=== PATIENT | male | born 1960 | race Caucasian/White ===

== ENCOUNTER 2016-12-14 09:03 | Day surgery (SDC) | payer BC ==
[2016-12-14] VITALS (8 sets, daily range): BP systolic 116–136; BP diastolic 70–89
[~2016-12-14] VITALS: Ht 177.8 cm; Wt 81.6 kg
[~2016-12-14 09:03] MED LIST: ASPIRIN81 MG ORAL
[2016-12-14] MEDS ORDERED: FLOMAX0.4 MG ORAL (09:38)
[2016-12-14] MEDS ORDERED: VITAMIN D1000 UNI1 ORAL (09:38)
--- NOTE | 2016-12-14 10:30 | Pre-Procedure Note/Attestation ---
Pre-Procedure Note/Attestation Complete Prior to Procedure Planned Procedure: not applicable Procedure Narrative: egd/colon Indications for Procedure Pre-Operative Diagnosis: screening colon, GERD Attestation I attest that I discussed the nature of the procedure; its benefits; risks and complications; and alternatives (and the risks and benefits of such alternatives ), prior to the procedure, with the patient (or the patient's legal development representative). I attest that, if there was a reasonable possibility of needing a blood transfusion, the patient (or the patient's legal development representative) was given the [facility] standardized written summary, pursuant to the [place] Blood Safety Act ([place] Health and Safety Code # 1645, as amended). I attest that I re-evaluated the patient just prior to the surgery and that there has been no change in the patient's H&P, except as documented below: EDIL MORRISON Dec 14, 2016 10:30
--- NOTE | 2016-12-14 10:32 | Short Stay Surgery H&P ---
History of Present Illness History of Present Illness Chief Complaint screening colon ,GERD HPI El Patel is a 56 year old male who was admitted on for Gerd,Hx Of Colon Polyps Patient History Allergies: Coded Allergies: No Known Allergies (Unverified , 11/21/12) PAST MEDICAL HISTORY: (1) GERD (gastroesophageal reflux disease) Past Surgeries: Social History: Medication History Scheduled Aspirin* (Aspirin*), 81 MG ORAL DAILY, (Reported) Cholecalciferol (Vitamin D3)* (Vitamin D*), 1,000 UNIT ORAL DAILY, (Reported) Tamsulosin HCl (Flomax), 0.4 MG ORAL DAILY, (Reported) Review of Systems Cardiovascular: Reports: no symptoms Respiratory: Reports: no symptoms Skeletal: Reports: no symptoms Gastrointestinal: Reports: no symptoms Genitourinary: Reports: no symptoms Neurologic: Reports: no symptoms Endocrine: Reports: no symptoms Hematologic: Reports: no symptoms Physical Exam Vital Signs Last Vital Signs Date Time Temp Pulse Resp B/P Pulse Ox O2 Delivery O2 Flow Rate FiO2 12/14/16 09:38 98.6 63 20 136/89 96 Room Air Skin: normal HENT: normal Heart: normal Lungs: normal Abdomen: normal Extremities: normal Plan Plan of Care egd/colon Final Diagnosis: Attestation Are the patient's medical conditions optimized for surgery? Attestation Response: yes EDIL MORRISON Dec 14, 2016 10:31
[2016-12-14] MEDS ORDERED: Lidocaine 1% MPF 10mg/ml 5ml ONE (10:45)
[2016-12-14] MEDS ORDERED: LR 1000ml ONE (10:45)
[2016-12-14] MEDS ORDERED: Propofol 10mg/ml 20ml IV ONE (10:45)
--- NOTE | 2016-12-14 10:50 | Endoscopy Procedure Note ---
Endoscopy Procedure Note Indication for Procedure: screening colon, GERD Procedures Performed: EGD, colonoscopy Operative Findings/Diagnosis: gastritis, hemorrhoids Specimen: yes Pt Tolerated Procedure Well: Yes Estimated Blood Loss: none Anesthesiologist: elin Anesthesia: MAC Implant(s) used?: No 50 yrs or older w/o bx or poly: No 10yrs. F/U not recommended: Yes If not recommended, why?: Above average risk 10 yrs. F/U needed: Yes 18 years or older w/prev. colo: Yes <3yrs. since last colonoscopy: No EDIL MORRISON Dec 14, 2016 10:50
--- NOTE | 2016-12-14 11:03 | Anethesia Preoperative Eval ---
Anesthesia Pre-op PMH/ROS General Date of Evaluation: Dec 14, 2016 Time of Evaluation: 11:01 Anesthesiologist: adina ASA Score: ASA 2 Mallampati Score Class I : Soft palate, uvula, fauces, pillars visible Class II: Soft palate, uvula, fauces visible Class III: Soft palate, base of uvula visible Class IV: Only hard plate visible Mallampati Classification: Class II Surgeon: gerald Diagnosis: gerd Surgical Procedure: egd/colonoscopy Anesthesia History: none Family History: no anesthesia problems Allergies: Coded Allergies: No Known Allergies (Unverified , 11/21/12) Medications: see eMAR Past Medical History Cardiovascular: Denies: CAD, HTN, GA, arrhythmia, other, valve dz Pulmonary: Denies: COPD, MICHAEL, asthma, other Gastrointestinal/Genitourinary: Reports: GERD Neurologic/Psychiatric: Denies: CVA, TIA, dementia, depression/anxiety, other Endocrine: Denies: DM, hypothyroidism, other, steroids HEENT: Denies: NATIVE (L), NATIVE (R), cataract (L), cataract (R), glaucoma, other Hematology/Immune: Denies: DVT, anemia, bleeding disorder, other Musculoskeletal/Integumentary: Denies: DDD, DJD, OA, RA, edema, other Anesthesia Pre-op Phys. Exam Physician Exam Last Vital Signs Date Time Temp Pulse Resp B/P Pulse Ox O2 Delivery O2 Flow Rate FiO2 12/14/16 09:38 98.6 63 20 136/89 96 Room Air Constitutional: NAD Neurologic: CN 2-12 intact Cardiovascular: RRR Respiratory: CTA Gastrointestinal: S/NT/ND Airway Exam Mallampati Classification 2 Mallampati Score: Class II MO: full ROM: full Dentures: no lower, no upper Anesthesia Pre-op A/P Studies Pre-op Studies: EKG - sr Risk Assessment & Plan Plan: mac Status Change Before Surgery: No Pre-Antibiotics Drug: none ALTAGRACIA FAY CRNA Dec 14, 2016 11:03
--- NOTE | 2016-12-14 11:26 | Immediate Post-Op Evaluation ---
Immediate Post-Op Evalulation Immediate Post-Op Evalulation Procedure: egd/colonoscopy Date of Evaluation: Dec 14, 2016 Time of Evaluation: 11:25 IV Fluids: 500 Blood Pressure Systolic: 119 Blood Pressure Diastolic: 83 Pulse Rate: 69 Respiratory Rate: 14 O2 Sat by Pulse Oximetry: 96 Temperature (Fahrenheit): 97.3 Nausea: No Vomiting: No Complications none Patient Status: awake, reacts, patent Hydration Status: adequate Drug: none ALTAGRACIA FAY CRNA Dec 14, 2016 11:26
--- NOTE | 2016-12-14 12:11 | 48 Hour Post Anesthesia Eval ---
Post Anesthesia Evaluation Procedure: egd/colonoscopy Date of Evaluation: Dec 14, 2016 Time of Evaluation: 12:11 Blood Pressure Systolic: 116 0: 70 O2 Sat by Pulse Oximetry: 100 Airway: patent Nausea: No Vomiting: No Hydration Status: adequate Mental Status/LOC: patient returned to baseline Post-Anesthesia Complications: none Follow-up care needed: N/A ALTAGRACIA FAY CRNA Dec 14, 2016 12:11
--- NOTE | 2016-12-14 22:15 | Procedure Note ---
DATE OF PROCEDURE: 12/14/2016 SURGEON: Javi Amador M.D. PROCEDURE: Upper endoscopy with biopsy and colonoscopy with snare polypectomy and biopsy. ANESTHESIOLOGIST: Clementina Berumen CRNA. INSTRUMENT: Olympus adult flexible upper endoscope and colonoscope. INDICATION: 1. Screening colonoscopy evaluation. 2. History of H. pylori positive gastritis. 3. Acid reflux disease. REASON FOR PROCEDURE: The procedure, risks, benefits, and possible consequences, including hemorrhage, aspiration, perforation and infection, and alternative treatments, were explained to the patient/legal guardian by Dr. Javi Amador and the patient/legal guardian understood and accepted these risks. DESCRIPTION OF PROCEDURE: After informed consent was obtained and the patient was adequately sedated, Olympus upper endoscope was advanced from the mouth into the second portion of duodenum and retroflexion was performed in the stomach. The patient had at least three deep erosions/shallow ulceration in the body of the stomach. Random biopsy from antrum was obtained to rule out H. pylori infection. The patient also has some maybe inflammatory looking polyp in the duodenum. The rest of the exam was grossly within normal limits. At this time, the upper endoscope was retrieved and the patient was turned over for colonoscopy. First, a rectal exam was performed, which was normal. Then, the scope was advanced from the rectum into the cecum documented by appendiceal orifice, ileocecal valve, and right upper quadrant palpation. Quality of prep was very good. The patient had a total of three polyps, two diminutive polyps in the rectum removed with cold biopsy forceps technique. One of the flat polyp in the cecum measured roughly about 4 to 5 mm removed with the cold snare polypectomy technique. Retroflexion of rectum showed evidence of small nonbleeding internal hemorrhoids. The patient tolerated the procedure well without any complication. SUMMARY OF FINDINGS: 1. Three shallow ulcerations/deep erosion in the body of the stomach. 2. Gastritis, status post biopsy. 3. An inflammatory-looking polyp in the duodenum, not biopsied. 4. Internal hemorrhoids. 5. Three colonic polyps removed, see above for details. RECOMMENDATIONS: Follow up biopsy results and treat accordingly. The patient may need a repeat colonoscopy in three to five years depending on the pathology report. The patient needs to be on proton pump inhibitor daily until the biopsy results for the gastric mucosa comes back. I want to thank, Dr. Christiano Valladares, for this kind referral. Javi Amador M.D. DR: JANAE JOB#: [id number] CC: Christiano Valladares M.D.; Fax#: [phone]
--- NOTE | 2016-12-16 17:54 | Cardiology Report ---
APPROVED REPORT EKG Measurement Heart [id number] Normal sinus rhythm Normal ECG
== END 2016-12-14 12:30 | disposition home or self-care (01) ==
LOC: GAS 09:03
DX: Z12.11 Encounter for screening for malignant neoplasm of colon (principal); D12.0 Benign neoplasm of cecum; K62.1 Rectal polyp; K64.8 Other hemorrhoids; K21.9 Gastro-esophageal reflux disease without esophagitis; K29.50 Unspecified chronic gastritis without bleeding; K25.9 Gastric ulcer, unspecified as acute or chronic, without hemorrhage or perforation; K31.7 Polyp of stomach and duodenum; Z86.010 Personal history of colon polyps; Z79.82 Long term (current) use of aspirin
CPT/HCPCS: 43239; 45380; 45385; 93005; J2704; J7120; 94003; 94150